=== PATIENT | male | born 1990 | race Caucasian/White ===

== ENCOUNTER 2016-12-20 03:33 | Inpatient (IN) | payer SELFPAY ==
[2016-12-20] VITALS (8 sets, daily range): BP systolic 50–53; BP diastolic 25–28; PULSE 126; RESP 22; TEMP 98.1; O2SAT 94–100
[2016-12-20 03:58] LABS: I-STAT POTASSIUM 4.7 MMOL/L (3.5-4.9)
[2016-12-20] MEDS ORDERED: 3% SALINE INJ 500 ML IV SCH (04:30)
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
[2016-12-20] MEDS ORDERED: NOREPINEPHRINE 4 MG/4 ML AMP ONE ×2 (04:35→05:43)
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
[2016-12-20] MEDS ORDERED: IOHEXOL 350 MG/ML 10 ML VIAL (for RAD DIAG) IV ONE (04:42)
[2016-12-20 04:43] LABS: HEMATOCRIT 30.4 % (39.0-51.0); HEMO FLAGS AUTO DIFF; MEAN CELL VOLUME 98.8 FL (80.0-100.0); MEAN CORPUSCULAR HEMOGLOBIN 33.5 PG (27.0-34.0); MEAN CORPUSCULAR HGB CONC 33.9 % (32.0-36.0); PLATELET COUNT 133 TH/MM3 (150-450); RED BLOOD COUNT 3.08 MIL/MM3 (4.50-5.90); RED CELL DISTRIBUTION WIDTH 13.3 % (11.6-17.2); WHITE BLOOD COUNT 3.3 TH/MM3 (4.0-11.0)
[2016-12-20] MEDS ORDERED: NOREPINEPHRINE INJ 4 MG in SODIUM CHLOR 0.9% 250 ML INJ 246 ML IV SCH (04:45)
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
[2016-12-20] MEDS ORDERED: MANNITOL INJ 50 ML ONE ×2 (05:24→05:30)
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
[2016-12-20 05:30] LABS: BLOOD GAS BASE EXCESS -14.2 mmol/L (-2-2); BLOOD GAS CARBOXYHEMOGLOBIN 1.4 % (0-4); BLOOD GAS HCO3 15 mmol/L (22-26); BLOOD GAS O2 HGB SATURATION 97 % (90-100); BLOOD GAS OXYGEN CONTENT 14.8 Vol % (12.0-20.0); BLOOD GAS PCO2 62 mmHg (38-42); BLOOD GAS PO2 330 mmHg (61-120); BLOOD GAS TOTAL HGB 10.3 G/DL (12.0-16.0); CRITICAL VALUE YES; OXYGEN DEVICE VENTILATOR; TEMP CORR TO 98.6
[2016-12-20] MEDS ORDERED: SODIUM CHLORIDE IV SCH (05:30)
[2016-12-20] MEDS ORDERED: SODIUM CHLORID 0.9% IV SCH (05:30)
[2016-12-20 05:31] LABS: DRAW SITE ART LINE; FIO2 100 %; STAT NO
[2016-12-20 05:36] LABS: NEUTROPHIL # MANUAL DIFF 1.9 TH/MM3 (1.8-7.7); PLATELET ESTIMATE SMEAR LOW (NORMAL); PLATELET MORPHOLOGY CLUMPED (NORMAL); POLYS (SEG NEUTROPHILS) 58 % (16-70); SCAN/DIFF FINAL DIFF MANUAL; WBC DIFF SAMPLE 100
[2016-12-20 05:37] LABS: APTT (PATIENT) 34.7 SEC (24.3-30.1); INTERNATIONAL NORMALIZED RATIO 1.3 RATIO; PROTHROMBIN TIME - PATIENT 14.5 SEC (9.8-11.6)
[2016-12-20] MEDS ORDERED: SODIUM BICARBONATE 8.4% INJ 50 ML ONE (05:39)
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
[2016-12-20] MEDS ORDERED: EPINEPHrine (1:1000) INJ 8 MG in SODIUM CHLOR 0.9% 250 ML INJ 242 ML IV SCH (06:00)
[2016-12-20] MEDS ORDERED: SODIUM BICARBONATE 8.4% INJ 50 MEQ/50 ML SYR IV ONE ×2 (06:00→13:58)
[2016-12-20] MEDS ORDERED: NOREPINEPHRINE INJ 16 MG in SODIUM CHLOR 0.9% 250 ML INJ 234 ML IV SCH (06:00)
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
[2016-12-20] MEDS ORDERED: EPINEPHrine (1:1000) INJ 2 MG in DEXTROSE 5% IN WATER INJ 248 ML IV SCH ×2 (07:30)
--- NOTE | 2016-12-20 07:37 | DEATH SUM ---
Summary Demographics Date Pronounced : Dec 20, 2016 Time Of : 07:18 Pronounced By: Roseanne Turpin M.D. Preliminary Cause of : Brain Mahesh Turpin MD Dec 20, 2016 07:37
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
[2016-12-20] MEDS ORDERED: EPINEPHrine HCL (1:10,000) 1 MG/10 ML SYRINGE IV ONE (13:58)
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
== END 2016-12-20 13:59 | disposition expired | DRG 82 ==
LOC: NEPI 03:33 → EDBD 04:07 → NEDA 04:07 → N03A 04:30
PROVIDERS: ADMIT Surgery; ATTEND Surgery
PROC: 5A12012 Performance of Cardiac Output, Single, Manual (ICD-10-PCS; principal; 2016-12-20)
PROC: 5A1935Z Respiratory Ventilation, Less than 24 Consecutive Hours (ICD-10-PCS; 2016-12-20)
PROC: 30233K1 Transfusion of Nonautologous Frozen Plasma into Peripheral Vein, Percutaneous Approach (ICD-10-PCS; 2016-12-20)
PROC: 30233N1 Transfusion of Nonautologous Red Blood Cells into Peripheral Vein, Percutaneous Approach (ICD-10-PCS; 2016-12-20)
DX: S02.91XA Unspecified fracture of skull, initial encounter for closed fracture (principal); J96.90 Respiratory failure, unspecified, unspecified whether with hypoxia or hypercapnia; S06.6X9A Traumatic subarachnoid hemorrhage with loss of consciousness of unspecified duration, initial encounter; G93.6 Cerebral edema; R57.9 Shock, unspecified; E87.2 Acidosis; S00.81XA Abrasion of other part of head, initial encounter; I46.9 Cardiac arrest, cause unspecified; V19.40XA Pedal cycle driver injured in collision with unspecified motor vehicles in traffic accident, initial encounter; Y93.55 Activity, bike riding
CPT/HCPCS: 36430; 36556; 70450; 70486; 71010; 71260; 72125; 72128; 72131; 72170; 74177; 80307; 82435; 82565; 82805; 82947; 84132; 84295; 84520; 85007; 85027; 85384; 85610; 85730; 86850; 86900; 86901; 86920; 86927; 94002; J0171; J2150; J7050; J7060; P9016; P9017; Q9967